=== PATIENT | male | born 1985 | race Caucasian/White ===

== ENCOUNTER 2017-01-26 23:09 | Emergency (ER) | payer SELFPAY ==
[2017-01-26 23:46] LABS: UA SPECIFIC GRAVITY 1.025 (1.005-1.035); microscopic required? YES; urine erythrocyte 2+ (NEGATIVE)
[2017-01-27 00:35] LABS: CALCIUM 8.8 mg/dL (8.5-10.1); CARBON DIOXIDE 27.5 mmol/L (21-32); CHLORIDE SERUM 106 mmol/L (98-107); GFR1 > 60 mL/min; GLUCOSE SERUM 100 mg/dL (74-106); POTASSIUM SERUM 3.6 mmol/L (3.5-5.1); SODIUM SERUM 143 mmol/L (136-145)
[2017-01-27 00:39] LABS: ALKALINE PHOSPHATASE 84 U/L (46-116); ALT/SGPT 27 U/L (16-63); AST/SGOT 23 U/L (15-37); BILIRUBIN TOTAL 0.3 mg/dL (0.20-1.00); TOTAL PROTEIN, SERUM 7.7 g/dL (6.4-8.2)
[2017-01-27 00:44] LABS: BASOPHIL % 0.5 % (0-2); PLATELET COUNT 271 x10^3mcL (130-400); RED CELL DISTRIBUTION WIDTH 13.7 % (11.5-14.5)
[2017-01-27 01:54] VITALS: BP 119/64
== END 2017-01-27 01:45 | disposition home or self-care (01) ==
LOC: ED 23:09
PROVIDERS: Emergency Medicine
DX: N30.01 Acute cystitis with hematuria (principal); N43.3 Hydrocele, unspecified
CPT/HCPCS: J0696; J1885; J7030; Q0092

== ENCOUNTER 2018-07-27 19:59 | Emergency (ER) | payer SELFPAY ==
[2018-07-27 21:02] VITALS: Ht 165.1 cm
[2018-07-28 00:25] VITALS: BP 132/71
[2018-07-29 04:13] LABS: RAPID PLASMA REAGIN Non Reactive (Non Reactive)
== END 2018-07-28 00:31 | disposition home or self-care (01) ==
LOC: ED 19:59
PROVIDERS: Emergency Medicine
DX: N34.2 Other urethritis (principal); Z90.49 Acquired absence of other specified parts of digestive tract
CPT/HCPCS: 87491; 87591; J0696